=== PATIENT | female | born 1955 | race African-American/Black ===

== ENCOUNTER 2018-05-24 17:41 | Emergency (ER) | payer OTHER ==
[2018-05-24 19:09] LABS: ADD MAN DIFF? NO
[2018-05-24 19:13] LABS: BASOPHILS % 0.1 % (0.0-2.0); HEMATOCRIT 47.1 % (37.0-47.0); LYMPHOCYTES # 1.4 10^3/ul (0.8-2.9); LYMPHOCYTES % 9.6 % (15.0-51.0); MEAN CORPUSCULAR HEMOGLOBIN 24.3 pg (29.0-33.0); MEAN CORPUSCULAR HGB CONC 31.8 g/dl (32.0-37.0); MEAN CORPUSCULAR VOLUME 76.3 fl (82.0-101.0); MEAN PLATELET VOLUME 10.4 fl (7.4-10.4); MONOCYTE # 1.1 10^3/ul (0.3-0.9); MONOCYTES % 7.4 % (0.0-11.0); NEUTROPHILS % 82.3 % (39.0-77.0); PLATELET COUNT 505 10^3/UL (140-415); RED BLOOD COUNT 6.17 10^6/ul (4.20-5.40); RED CELL DISTRIBUTION WIDTH 16.1 % (11.5-14.5)
[2018-05-24 19:13] LABS: WHITE BLOOD COUNT 14.6 10^3/ul (4.8-10.8)
[2018-05-24 19:25] LABS: ADD UMIC NO; UR ASCORBIC ACID NEGATIVE (NEGATIVE); UR BILIRUBIN (Dip) NEGATIVE (NEGATIVE); UR BLOOD (Dip) NEGATIVE (NEGATIVE); UR CLARITY CLEAR (CLEAR); UR COLOR STRAW (YELLOW); UR GLUCOSE (Dip) 3+ mg/dL (NEGATIVE); UR KETONES (Dip) 1+ mg/dL (NEGATIVE); UR LEUKOCYTE ESTERASE (Dip) NEGATIVE Leu/ul (NEGATIVE); UR NITRITE (Dip) NEGATIVE (NEGATIVE); UR SPECIFIC GRAVITY (Dip) 1.022 (1.003-1.030); UR TOTAL PROTEIN (Dip) NEGATIVE (NEGATIVE); UR UROBILINOGEN (Dip) NEGATIVE (NEGATIVE)
[2018-05-24] MEDS: ONDANSETRON 4 MG INJ IV ×2 (19:25→20:20)
[2018-05-24] MEDS: SOD CHLORIDE 0.9% 1,000 ML IV (19:25)
[2018-05-24 19:36] LABS: MODE ROOM AIR; MetHgb Venous 0.3 %; Sample Type Blood venous; Site VENOUS LINE; Venous COHb 0.7 %; Venous Fraction OxyHgb 74.1 %; Venous Oxygen Sat 74.8 mmHG (55.0-75.0); Venous Total Hemglobin 15.9 g/dl
[2018-05-24 19:39] LABS: ALANINE AMINOTRANSFERASE 25 IU/L (13-69); ALBUMIN 4.3 g/dl (3.3-4.9); ALBUMIN/GLOBULIN RATIO 1.04; ALKALINE PHOSPHATASE 120 IU/L (42-121); ANION GAP 25 (8-16); ASPARTATE AMINO TRANSFERASE 16 IU/L (15-46); BILIRUBIN,INDIRECT 0.6 mg/dl (0-1.1); BILIRUBIN,TOTAL 0.6 mg/dl (0.2-1.3); BLOOD UREA NITROGEN 38 mg/dl (7-20); CARBON DIOXIDE 25 mmol/L (21-31); CHLORIDE 99 mmol/L (97-110); CREATININE 1.34 mg/dl (0.44-1.00); LIPASE 42 U/L (23-300); MAGNESIUM 2.3 mg/dl (1.7-2.5); PHOSPHORUS 6.8 mg/dl (2.5-4.9); POTASSIUM 4.3 mmol/L (3.5-5.1); SODIUM 145 mmol/L (135-144); TOTAL PROTEIN 8.4 g/dl (6.1-8.1)
[2018-05-24 19:51] LABS: GLUCOSE 633 mg/dl (70-220); TROPONIN-I < 0.012 ng/ml (0.000-0.120)
[2018-05-24 19:51] LABS: LACTIC ACID 3.8 mmol/L (0.5-2.0)
[2018-05-24] MEDS: PIPER-TAZO 3.375 GM IV (PMX) 100 ML IVPB (20:02)
[2018-05-24] MEDS: LORAZEPAM 2 MG INJ IV (20:21)
[2018-05-24] MEDS: METOCLOPRAMIDE 10 MG INJ IV (20:21)
[2018-05-24] MEDS: INSULIN LISPRO 100 UNIT/ML VIAL SC (20:43)
[2018-05-24] MEDS: SODIUM CHLORIDE 0.9% 1L BAG IV* (21:07)
[2018-05-24 21:16] LABS: PT RATIO 1.1
[2018-05-24 21:22] LABS: INR 1.04; PARTIAL THROMBOPLASTIN TIME 29.7 Sec (25.0-35.0); PROTIME 13.7 Sec (11.9-14.9)
[2018-05-24 22:43] LABS: LACTIC ACID 2.7 mmol/L (0.5-2.0)
[2018-05-24] MEDS: VANCOMYCIN 1 GM (PMX) 250 ML IVPB (23:04)
[2018-05-24] MEDS: ASPIRIN 81 MG TAB PO (23:09)
[2018-05-25 00:20] LABS: LACTIC ACID 2.8 mmol/L (0.5-2.0)
== END 2018-05-25 03:40 | disposition short-term general hospital (02) ==
LOC: E/R 05-25 03:40
DX: A41.9 Sepsis, unspecified organism (principal); R65.20 Severe sepsis without septic shock; N28.9 Disorder of kidney and ureter, unspecified; E11.65 Type 2 diabetes mellitus with hyperglycemia; I49.3 Ventricular premature depolarization; I10 Essential (primary) hypertension; Z79.82 Long term (current) use of aspirin
CPT/HCPCS: 36415; 71045; 74019; 76705; 80053; 81003; 82803; 82962; 83605; 83690; 83735; 84100; 84484; 85025; 85610; 85730; 87040; 87086; 93005; 96372; 96374; 96375; 99291-25

== ENCOUNTER 2018-08-16 19:43 | Emergency (ER) | payer SELFPAY, OTHER, MEDICAID ==
[2018-08-16] MEDS: SOD CHLORIDE 0.9% 1,000 ML IV (23:22)
[2018-08-16 23:33] LABS: ADD MAN DIFF? NO
[2018-08-16 23:35] LABS: WHITE BLOOD COUNT 9.1 10^3/ul (4.8-10.8)
[2018-08-16 23:35] LABS: BASOPHIL # 0.1 10^3/ul (0.0-0.1); BASOPHILS % 0.7 % (0.0-2.0); EOSINOPHILS % 0.2 % (0.0-7.0); HEMATOCRIT 42.7 % (37.0-47.0); HEMOGLOBIN 13.7 g/dl (12.0-16.0); LYMPHOCYTES # 2.5 10^3/ul (0.8-2.9); LYMPHOCYTES % 27.2 % (15.0-51.0); MEAN CORPUSCULAR HEMOGLOBIN 24.2 pg (29.0-33.0); MEAN CORPUSCULAR HGB CONC 32.1 g/dl (32.0-37.0); MEAN CORPUSCULAR VOLUME 75.4 fl (82.0-101.0); MEAN PLATELET VOLUME 10.8 fl (7.4-10.4); MONOCYTE # 0.8 10^3/ul (0.3-0.9); MONOCYTES % 8.5 % (0.0-11.0); NEUTROPHIL # 5.7 10^3/ul (1.6-7.5); NEUTROPHILS % 62.8 % (39.0-77.0); PLATELET COUNT 370 10^3/UL (140-415); RED BLOOD COUNT 5.66 10^6/ul (4.20-5.40); RED CELL DISTRIBUTION WIDTH 15.7 % (11.5-14.5)
[2018-08-16 23:49] LABS: ADD UMIC YES; UR ASCORBIC ACID NEGATIVE (NEGATIVE); UR BILIRUBIN (Dip) NEGATIVE (NEGATIVE); UR BLOOD (Dip) 2+ mg/dL (NEGATIVE); UR CLARITY CLEAR (CLEAR); UR COLOR YELLOW (YELLOW); UR GLUCOSE (Dip) 3+ mg/dL (NEGATIVE); UR KETONES (Dip) 1+ mg/dL (NEGATIVE); UR LEUKOCYTE ESTERASE (Dip) NEGATIVE Leu/ul (NEGATIVE); UR MUCUS FEW /HPF (NONE SEEN); UR NITRITE (Dip) NEGATIVE (NEGATIVE); UR RBC 1 /HPF (0-5); UR SPECIFIC GRAVITY (Dip) 1.017 (1.003-1.030); UR TOTAL PROTEIN (Dip) NEGATIVE (NEGATIVE); UR UROBILINOGEN (Dip) NEGATIVE (NEGATIVE); UR WBC 1 /HPF (0-5)
[2018-08-16 23:57] LABS: INR 0.93; PARTIAL THROMBOPLASTIN TIME 27.6 Sec (23.0-35.0); PROTIME 12.6 Sec (11.9-14.9)
[2018-08-17] LABS: ALANINE AMINOTRANSFERASE 21 IU/L (13-69); ALBUMIN 4.3 g/dl (3.3-4.9); ALBUMIN/GLOBULIN RATIO 1.38; ALKALINE PHOSPHATASE 75 IU/L (42-121); ANION GAP 18 (5-13); ASPARTATE AMINO TRANSFERASE 17 IU/L (15-46); BLOOD UREA NITROGEN 22 mg/dl (7-20); CALCIUM 9.8 mg/dl (8.4-10.2); CARBON DIOXIDE 23 mmol/L (21-31); CHLORIDE 94 mmol/L (97-110); CREATININE 1.03 mg/dl (0.44-1.00); Estimated GFR > 60 mL/min (>60); LIPASE 41 U/L (23-300); POTASSIUM 4.6 mmol/L (3.5-5.1); SODIUM 135 mmol/L (135-144); TOTAL PROTEIN 7.4 g/dl (6.1-8.1)
[2018-08-17 00:07] LABS: GLUCOSE 492 mg/dl (70-220)
== END 2018-08-17 02:16 | disposition home or self-care (01) ==
LOC: E/R 19:43
DX: R10.9 Unspecified abdominal pain (principal)
CPT/HCPCS: 36415; 74176; 80053; 81001; 82962; 83690; 85025; 85610; 85730; 99285-25

== ENCOUNTER 2018-10-25 14:45 | Emergency (ER) | payer SELFPAY, MEDICAID ==
[2018-10-25] MEDS: SOD CHLORIDE 0.9% 1,000 ML IV ×2 (15:35→17:14)
[2018-10-25 15:48] LABS: ADD MAN DIFF? NO
[2018-10-25 15:50] LABS: BASOPHIL # 0.1 10^3/ul (0.0-0.1); BASOPHILS % 0.9 % (0.0-2.0); EOSINOPHILS % 0.1 % (0.0-7.0); HEMOGLOBIN 14.2 g/dl (12.0-16.0); LYMPHOCYTES # 1.4 10^3/ul (0.8-2.9); LYMPHOCYTES % 20.3 % (15.0-51.0); MEAN CORPUSCULAR HGB CONC 31.6 g/dl (32.0-37.0); MEAN CORPUSCULAR VOLUME 79.2 fl (82.0-101.0); MONOCYTE # 0.7 10^3/ul (0.3-0.9); NEUTROPHIL # 4.6 10^3/ul (1.6-7.5); PLATELET COUNT 361 10^3/UL (140-415); RED BLOOD COUNT 5.68 10^6/ul (4.20-5.40); RED CELL DISTRIBUTION WIDTH 16.7 % (11.5-14.5)
[2018-10-25 15:50] LABS: WHITE BLOOD COUNT 6.7 10^3/ul (4.8-10.8)
[2018-10-25 16:07] LABS: ANION GAP 18 (5-13); BLOOD UREA NITROGEN 22 mg/dl (7-20); CALCIUM 9.9 mg/dl (8.4-10.2); CARBON DIOXIDE 19 mmol/L (21-31); CHLORIDE 101 mmol/L (97-110); CREATININE 1.13 mg/dl (0.44-1.00); Estimated GFR 59 mL/min (>60); SODIUM 138 mmol/L (135-144)
[2018-10-25 16:12] LABS: POTASSIUM 5.1 mmol/L (3.5-5.1)
[2018-10-25 16:13] LABS: GLUCOSE 444 mg/dl (70-220)
[2018-10-25] MEDS: INSULIN LISPRO 100 UNIT/ML VIAL SC (17:15)
[2018-10-25 18:24] LABS: ADD UMIC YES; UR ASCORBIC ACID NEGATIVE (NEGATIVE); UR BACTERIA FEW /HPF (NONE SEEN); UR BILIRUBIN (Dip) NEGATIVE (NEGATIVE); UR BLOOD (Dip) 3+ mg/dL (NEGATIVE); UR CLARITY CLOUDY (CLEAR); UR COLOR YELLOW (YELLOW); UR GLUCOSE (Dip) 3+ mg/dL (NEGATIVE); UR KETONES (Dip) 1+ mg/dL (NEGATIVE); UR LEUKOCYTE ESTERASE (Dip) 1+ Leu/ul (NEGATIVE); UR MUCUS FEW /HPF (NONE SEEN); UR NITRITE (Dip) NEGATIVE (NEGATIVE); UR RBC 9 /HPF (0-5); UR SPECIFIC GRAVITY (Dip) 1.017 (1.003-1.030); UR SQUAMOUS EPITHELIAL CELL FEW /HPF (FEW); UR TOTAL PROTEIN (Dip) 1+ mg/dl (NEGATIVE); UR UROBILINOGEN (Dip) NEGATIVE (NEGATIVE); UR WBC 44 /HPF (0-5)
== END 2018-10-25 19:36 | disposition home or self-care (01) ==
LOC: E/R 14:45
DX: E11.65 Type 2 diabetes mellitus with hyperglycemia (principal); I10 Essential (primary) hypertension; Z79.4 Long term (current) use of insulin
CPT/HCPCS: 74176; 80048; 81001; 82962; 85025; 96372; 99285-25